=== PATIENT | female | born 1985 | race Caucasian/White ===

== ENCOUNTER 2017-05-28 10:43 | Emergency (ER) | payer OTHER, SELFPAY ==
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
[2017-05-28] MEDS ORDERED: KETOROLAC 30 MG/ML INJ ONE (11:37)
[2017-05-28] MEDS ORDERED: TETANUS & DIPHTHERIA TOX,ADULT 0.5 ML VIAL ONE (11:37)
[2017-05-28] MEDS ORDERED: AMOX/K CLAV 875 MG TAB ONE (11:37)
[2017-05-28 14:03] LABS: Urine Blood 1+ (NEG); Urine Glucose NEGATIVE (NEG); Urine Protein NEGATIVE (NEG)
== END 2017-05-28 11:34 | disposition home or self-care (01) ==
LOC: ER 10:43
DX: L08.9 Local infection of the skin and subcutaneous tissue, unspecified (principal); Y04.1XXA Assault by human bite, initial encounter; Y93.9 Activity, unspecified; Y92.009 Unspecified place in unspecified non-institutional (private) residence as the place of occurrence of the external cause; Z23 Encounter for immunization; F17.210 Nicotine dependence, cigarettes, uncomplicated
CPT/HCPCS: 81003; 81025; 90714; 96372; 99284

== ENCOUNTER 2017-07-17 09:12 | Emergency (ER) | payer SELFPAY ==
[2017-07-17] MEDS ORDERED: hydrOXYzine HCl 25 MG TAB ONE (10:01)
[2017-07-17] MEDS ORDERED: METHYLPREDNISOLONE 125 MG INJ ONE (10:01)
[2017-07-17] MEDS ORDERED: FAMOTIDINE 20 MG/2 ML VIAL IV ONE (10:01)
[2017-07-17 10:28] LABS: Absolute Lymphocytes (CBC) 2.4 K/uL (0.7-4.9); Absolute Monocytes 0.5 K/uL (0.1-1.3); Absolute Neutrophil 5.6 K/uL (1.8-8.0); Basophils % 0.9 % (0-1.3); Bicarbonate 26 mEq/L (21-31); Eosinophils % 1.2 % (0-4.4); Glucose Level 99 mg/dL (65-120); Hematocrit 37.4 % (36.0-45.0); Lymphocytes % 27.3 % (15.3-44.8); MCH 25.7 pg (27.0-35.0); MCV 77.9 fL (80-100); MPV 8.3 fL (7.6-11.3); Potassium 3.5 mEq/L (3.6-5.0); Sodium Level 136 mEq/L (135-145)
[2017-07-17 10:29] LABS: BUN Blood Urea Nitrogen 11 mg/dL (6-20)
--- NOTE | 2017-07-17 11:17 | EDPHYS ---
Physician Documentation [facility] Name: Fe Dao Age: 31 yrs Sex: Female : 1985 Arrival Date: 07/17/2017 Time: 09:15 Bed 18 Private MD: DUSTY OG ED Physician Francisco Ornelas HPI: 07/17 16:54 This 31 yrs old Female presents to ER via Ambulatory with complaints of kdr Allergic Reaction, Back Pain. 16:54 The patient presents with itching, rash, redness of skin. Onset: The symptoms/episode kdr began/occurred gradually, 1.5 week(s) ago. Associated signs and symptoms: The patient has no apparent associated signs or symptoms. Possible causes: The patient has no known obvious cause for the symptoms. At home the patient or guardian has treated the symptoms with Benadryl. Severity of symptoms: At their worst the symptoms were mild moderate just prior to arrival, in the emergency department the symptoms are unchanged. The patient has not experienced similar symptoms in the past. The patient has been recently seen by a physician: Had been on Macrobid for UTI. 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 - Social history:: Smoking status: Patient uses tobacco products, smokes one-half pack cigarettes per day. - Ebola Screening: : No symptoms or risks identified at this time. ROS: 16:54 Constitutional: Negative for fever, chills, and weight loss, Eyes: Negative for injury, kdr pain, redness, and discharge, ENT: Negative for injury, pain, and discharge, Neck: Negative for injury, pain, and swelling, Cardiovascular: Negative for chest pain, palpitations, and edema, Respiratory: Negative for shortness of breath, cough, wheezing, and pleuritic chest pain, Abdomen/GI: Negative for abdominal pain, nausea, vomiting, diarrhea, and constipation, Back: Negative for injury and pain, : Negative for injury, bleeding, discharge, and swelling, MS/Extremity: Negative for injury and deformity, Neuro: Negative for headache, weakness, numbness, tingling, and seizure activity. Psych: Negative for depression, anxiety, suicide ideation, homicidal ideation, and hallucinations, Allergy/Immunology: Negative for hives, rash, and allergies, Endocrine: Negative for neck swelling, polydipsia, polyuria, polyphagia, and marked weight changes, Hematologic/Lymphatic: Negative for swollen nodes, abnormal bleeding, and unusual bruising. 16:54 Skin: Positive for rash. Exam: 16:54 Constitutional: This is a well developed, well nourished patient who is awake, alert, kdr and in no acute distress. Head/Face: Normocephalic, atraumatic. Eyes: Pupils equal round and reactive to light, extra-ocular motions intact. Lids and lashes normal. Conjunctiva and sclera are non-icteric and not injected. Cornea within normal limits. Periorbital areas with no swelling, redness, or edema. Neck: Trachea midline, no thyromegaly or masses palpated, and no cervical lymphadenopathy. Supple, full range of motion without nuchal rigidity, or vertebral point tenderness. No Meningismus. Chest/axilla: Normal chest wall appearance and motion. Nontender with no deformity. No lesions are appreciated. Cardiovascular: Regular rate and rhythm with a normal S1 and S2. No gallops, murmurs, or rubs. Normal PMI, no JVD. No pulse deficits. Respiratory: Lungs have equal breath sounds bilaterally, clear to auscultation and percussion. No rales, rhonchi or wheezes noted. No increased work of breathing, no retractions or nasal flaring. Abdomen/GI: Soft, non-tender, with normal bowel sounds. No distension or tympany. No guarding or rebound. No evidence of tenderness throughout. Back: No spinal tenderness. No costovertebral tenderness. Full range of motion. MS/ Extremity: Pulses equal, no cyanosis. Neurovascular intact. Full, normal range of motion. Neuro: Awake and alert, GCS 15, oriented to person, place, time, and situation. Cranial nerves II-XII grossly intact. Motor strength 5/5 in all extremities. Sensory grossly intact. Cerebellar exam normal. Normal gait. Psych: Awake, alert, with orientation to person, place and time. Behavior, mood, and affect are within normal limits. 16:54 Skin: Appearance: normal except for affected area, rash a mild rash is noted, rash can be described as Vital Signs: 09:25 BP 127 / 79; Pulse 104; Resp 18 S; Temp 98.6(O); Pulse Ox 97% on R/A; Weight 115.67 kg aa5 (R); Height 5 ft. 3 in. (160.02 cm) (R); Pain 9/10; 10:45 BP 126 / 76; Pulse 88; Resp 16; Pulse Ox 100% on R/A; hb 09:25 Body Mass Index 45.17 (115.67 kg, 160.02 cm) aa5 MDM: 11:16 Patient medically screened. kdr 16:58 Data reviewed: vital signs, nurses notes. Counseling: I had a detailed discussion with kdr the patient and/or guardian regarding: the historical points, exam findings, and any diagnostic results supporting the discharge/admit diagnosis, the need for outpatient follow up. 07/17 09:57 Order name: CBC with Diff kdr 07/17 09:57 Order name: Chem 7 kdr Administered Medications: 10:12 Drug: SOLU-Medrol 125 mg Route: IVP; Site: right antecubital; hb 11:00 Follow up: Response: No adverse reaction hb 10:12 Drug: Atarax 50 mg Route: PO; hb 11:00 Follow up: Response: No adverse reaction hb 10:12 Drug: Pepcid 20 mg Route: IVP; Site: right antecubital; hb 11:00 Follow up: Response: No adverse reaction hb Disposition: 07/17/17 11:16 Discharged to Home. Impression: Acute allergic reaction - improved: Unknown source. - Condition is Stable. - Discharge Instructions: Allergies, [id number]. - Prescriptions for Vistaril 50 mg Oral capsule - take 1 capsule by ORAL route 4 times per day As needed; 30 capsule. Pepcid 20 mg Oral Tablet - take 1 tablet by ORAL route every 12 hours for 5 days; 50 tablet. Medrol (Julio) 4 mg Oral Tablets, Dose Pack - take 1 tablet by ORAL route as directed - follow package instructions; 1 packet. - Medication Reconciliation Form, Thank You Letter, Antibiotic Education, Prescription Opioid Use form. - Follow up: DUSTY OG; When: 1 - 2 days; Reason: If symptoms return, Further diagnostic work-up, Recheck today's complaints, Continuance of care, Re-evaluation by your physician. - Problem is new. - Symptoms have improved. - Notes: Watch your glucose level closely while on the medrol dose pack Signatures: Dispatcher [employer] EDFrancisco Yan MD MD kdr Demi Choe, RN RN aa5 Tosin Lisa, RN RN hb Corrections: (The following items were deleted from the chart) 11:35 11:16 07/17/2017 11:16 Discharged to Home. Impression: Acute allergic reaction - hb improved: Unknown source. Condition is Stable. Forms are Medication Reconciliation Form, Thank You Letter, Antibiotic Education, Prescription Opioid Use. Follow up: DUSTY OG; When: 1 - 2 days; Reason: If symptoms return, Further diagnostic work-up, Recheck today's complaints, Continuance of care, Re-evaluation by your physician. Problem is new. Symptoms have improved. kdr
--- NOTE | 2017-07-17 11:17 | ER ---
Nurse's Notes [facility] Name: Fe Dao Age: 31 yrs Sex: Female : 1985 Arrival Date: 07/17/2017 Time: 09:15 Bed 18 Private MD: DUSTY OG Diagnosis: Acute allergic reaction - improved: Unknown source Presentation: 07/17 09:22 Presenting complaint: Patient states: "I've had left back pain for a long time". Pt aa5 reports left flank pain, reports taking PO macrobid for E.Coli in the urine and after failed outpatient therapy she was admitted at [facility] and d/c'd home 07/06/17. Pt also reports rash and itching to whole body that began 07/15/17. Transition of care: patient was not received from another setting of care. Onset of symptoms was June 2017. Risk Assessment: Do you want to hurt yourself or someone else? Patient reports no desire to harm self or others. Initial Sepsis Screen: Does the patient meet any 2 criteria? No. Patient's initial sepsis screen is negative. Does the patient have a suspected source of infection? No. Patient's initial sepsis screen is negative. Care prior to arrival: None. 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 - Social history:: Smoking status: Patient uses tobacco products, smokes one-half pack cigarettes per day. - Ebola Screening: : No symptoms or risks identified at this time. Screenin:40 Abuse screen: Denies threats or abuse. Denies injuries from another. Nutritional hb screening: No deficits noted. Tuberculosis screening: No symptoms or risk factors identified. Fall Risk None identified. Assessment: 09:40 General: Appears in no apparent distress. uncomfortable, Behavior is cooperative, hb anxious. Pain: Denies pain. Neuro: Level of Consciousness is awake, alert, obeys commands, Oriented to person, place, time, situation. Cardiovascular: Capillary refill < 3 seconds Patient's skin is warm and dry. Respiratory: Airway is patent Trachea midline Respiratory effort is even, unlabored, Respiratory pattern is regular, symmetrical, Breath sounds are clear. GI: No signs and/or symptoms were reported involving the gastrointestinal system. : No signs and/or symptoms were reported regarding the genitourinary system. EENT: No signs and/or symptoms were reported regarding the EENT system. Derm: Rash noted that is urticaria, on face, trunk, arms Reports itching. Musculoskeletal: No signs and/or symptoms reported regarding the musculoskeletal system. 10:30 Reassessment: Patient appears in no apparent distress at this time. Patient and/or hb family updated on plan of care and expected duration. Pain level reassessed. Patient is alert, oriented x 3, equal unlabored respirations, skin warm/dry/pink. 11:15 Reassessment: Patient appears in no apparent distress at this time. Patient and/or hb family updated on plan of care and expected duration. Pain level reassessed. Patient is alert, oriented x 3, equal unlabored respirations, skin warm/dry/pink. Patient denies pain at this time. Patient states feeling better. Patient states symptoms have improved. Vital Signs: 09:25 BP 127 / 79; Pulse 104; Resp 18 S; Temp 98.6(O); Pulse Ox 97% on R/A; Weight 115.67 kg aa5 (R); Height 5 ft. 3 in. (160.02 cm) (R); Pain 9/10; 10:45 BP 126 / 76; Pulse 88; Resp 16; Pulse Ox 100% on R/A; hb 09:25 Body Mass Index 45.17 (115.67 kg, 160.02 cm) aa5 ED Course: 09:15 Patient arrived in ED. mr 09:15 DUSTY OG is Private Physician. mr 09:24 Triage completed. aa5 09:24 Arm band placed on. aa5 09:35 Francisco Ornelas MD is Attending Physician. kdr 09:40 Patient has correct armband on for positive identification. Bed in low position. Call hb light in reach. Side rails up X 1. 09:57 Tosin Lisa, RN is Primary Nurse. hb 10:05 Inserted saline lock: 20 gauge 24 gauge antecubital area, using aseptic technique. hb Blood collected. 11:12 DUSTY OG is Referral Physician. kdr 11:34 No provider procedures requiring assistance completed. IV discontinued, intact, hb bleeding controlled, No redness/swelling at site. Pressure dressing applied. Administered Medications: 10:12 Drug: SOLU-Medrol 125 mg Route: IVP; Site: right antecubital; hb 11:00 Follow up: Response: No adverse reaction hb 10:12 Drug: Atarax 50 mg Route: PO; hb 11:00 Follow up: Response: No adverse reaction hb 10:12 Drug: Pepcid 20 mg Route: IVP; Site: right antecubital; hb 11:00 Follow up: Response: No adverse reaction hb Outcome: 11:16 Discharge ordered by . kdr 11:34 Discharged to home ambulatory, with family. hb 11:34 Condition: stable 11:34 Discharge instructions given to patient, Instructed on discharge instructions, follow up and referral plans. medication usage, Demonstrated understanding of instructions, follow-up care, medications, Prescriptions given X 3. 11:35 Patient left the ED. hb Signatures: Francisco Ornelas MD MD kdr Rivera, Maria mr Demi Choe, RN RN aa5 Tosin Lisa, KAREN RN hb
== END 2017-07-17 11:35 | disposition home or self-care (01) ==
LOC: ER 09:12
DX: T78.40XA Allergy, unspecified, initial encounter (principal); X58.XXXA Exposure to other specified factors, initial encounter
CPT/HCPCS: 36415; 80048; 85025; 96374; 96375; 99284; J2930

== ENCOUNTER 2020-03-02 20:03 | Emergency (ER) | payer SELFPAY ==
--- OUTSIDE RECORDS SUMMARY | 2020-03-02 20:05 | XMS REPORT | Continuity of Care Document ---
:1985 Author Organization [facility] t Address [address] [place] [address] Care Team Providers Name Role Phone Ju Cates Attending Clinician Merry-Rmchp Nurse Vst, Nrpt Pills Class Attending Clinician U anna LUU Attending Clinician Visit/Fp, Nurse Attending Clinician Unavailable Doctor Unassigned, Name Attending Clinician Unavailable Lucila Ariza Attending Clinician Pool, Resident Attending Clinician Unavailable Problems This patient has no known problems. Allergies, Adverse Reactions, Alerts This patient has no known allergies or adverse reactions. Medications This patient has no known medications. Procedures This patient has no known procedures. Encounters Start End Encounter Admission Attending Care Care Encounter Source Date/Time Date/Time Type Type Clinicians Facility Department ID 2019-11-17 2019-11-17 Emergency Alvarado [facility] [id number] 15:00:00 18:56:00 Giovanni Whaley [id number] [place] [id number] [place] [id number] 2019-09-22 2019-09-22 Nurse Merry-Rmchp [facility] [id number] 13:14:19 13:53:52 Visit Nurse Vst, STRE[facility] [employer] [id number] [facility] [id number] Pills Class MATERNAL [id number] & CHILD 125 [facility] 2019-09-16 2019-09-16 Telephone JAREK Espinosa [id number] 00:00:00 00:00:[address] [employer] [id number] [facility] [id number] MATERNAL [phone] & CHILD 125 [facility] 2019-07-02 2019-07-02 Nurse Visit/Fp, UNIVERSIT [id number] 09:23:13 10:20:20 Visit [facility] [id number] Nurse CLINICS [id number] 2019-07-02 2019-07-02 Orders Doctor JOSSE [id number] 00:00:00 00:00:00 Only Unassigned, CAROLE [id number] [place] [facility] [id number] [id number] 2019-06-04 2019-06-04 Emergency E MHSE MHSE [id number] MH 02:04:00 [facility]:04[facility] 2019-05-09 2019-05-10 Emergency Valadez, TRAUMA [id number] 22:47:10 00:31:00 Milagro CRYSTAL [id number] 2019-04-01 2019-04-01 Office Pool, [facility] [id number] 13:58:15 15:00:24 Visit [facility] [id number] CLINICS [id number] 2019-02-13 2019-02-13 Emergency E MHBL MHBL [id number] MHBL 22:01:00 22:01:00 2014-11-15 2014-11-15 Patient Doctor JOSSE [id number] 00:00:00 00:00:00 Secure Msg Unassigned, CAROLE [id number] [place] [facility] [id number] Results This patient has no known results.
--- NOTE | 2020-03-02 20:57 | RAD REPORT ---
EXAM DESCRIPTION: Beatriz Cole (2 Views)03/02/2020 8:39 pm CLINICAL HISTORY: Chest pain COMPARISON: 2017 FINDINGS: The lungs appear clear of acute infiltrate. The heart is normal size IMPRESSION: No acute abnormalities displayed
[2020-03-02 22:18] LABS: SARS-COV-2 RT PCR NEGATIVE (NEGATIVE)
[2020-03-02] MEDS ORDERED: NA CHLORIDE 0.9% 1,000 ML ONE (22:49)
[2020-03-02] MEDS ORDERED: METHYLPREDNISOLONE 125 MG INJ ONE (22:51)
[2020-03-02 23:26] LABS: Absolute Lymphocytes (CBC) 4.1 K/uL (0.7-4.9); Lymphocytes % 38.9 % (15.3-44.8); MPV 8.4 fL (7.6-11.3); RBC Red Blood Cell Count 4.61 M/uL (3.86-4.86)
[2020-03-02 23:39] LABS: BUN Blood Urea Nitrogen 11 mg/dL (7-18); Bicarbonate 29 mmol/L (21-32); Glucose Level 98 mg/dL (74-106); Potassium 3.7 mmol/L (3.5-5.1); Sodium Level 140 mmol/L (136-145); Troponin (Emerg Dept Use Only) < 0.02 ng/mL (0.0-0.045)
--- NOTE | 2020-03-02 23:42 | EDPHYS ---
Physician Documentation [facility] Name: Fe Dao Age: 34 yrs Sex: Female : 1985 Arrival Date: 03/02/2020 Time: 20:04 Bed 27 Private MD: ED Physician Jose L Harris HPI: 03/02 22:33 This 34 yrs old Female presents to ER via Ambulatory with complaints of kb Breathing Difficulty, Chest Pain. 22:33 The patient or guardian reports cough, that is intermittent, described as mild, with no kb sputum, difficulty breathing, flu symptoms, arthralgias, low-grade fever, myalgias, no appetite. Onset: The symptoms/episode began/occurred 1 week(s) ago. Severity of symptoms: At their worst the symptoms were moderate, in the emergency department the symptoms are unchanged. Modifying factors: The symptoms are alleviated by nothing, the symptoms are aggravated by nothing. Associated signs and symptoms: Pertinent positives: chest pain, fever, rhinorrhea, Pertinent negatives: diarrhea, ear ache, nausea, sore throat, vomiting. The patient has not experienced similar symptoms in the past. The patient has not recently seen a physician. Historical: - Allergies: 20:12 No Known Allergies; ll1 - PMHx: 20:12 Anxiety; Headaches; Hypertension; muscle spasms; ll1 - PSHx: 20:12 ; ll1 - Immunization history:: Flu vaccine is up to date. - Social history:: Smoking status: Patient reports the use of cigarette tobacco products, smokes one-half pack cigarettes per day. ROS: 22:29 ENT: Negative for injury, pain, and discharge, Neck: Negative for injury, pain, and kb swelling, Abdomen/GI: Negative for abdominal pain, nausea, vomiting, diarrhea, and constipation, Back: Negative for injury and pain, MS/Extremity: Negative for injury and deformity, Skin: Negative for injury, rash, and discoloration, Neuro: Negative for headache, weakness, numbness, tingling, and seizure. 22:29 Constitutional: Positive for body aches, chills, fatigue, fever, malaise. 22:29 Cardiovascular: Positive for chest pain, Negative for edema, orthopnea, palpitations, paroxysmal nocturnal dyspnea. 22:29 Respiratory: Positive for cough, shortness of breath. Exam: 22:32 Constitutional: This is a well developed, well nourished patient who is awake, alert, kb and in no acute distress. Head/Face: Normocephalic, atraumatic. ENT: Nares patent. No nasal discharge, no septal abnormalities noted. Tympanic membranes are normal and external auditory canals are clear. Oropharynx with no redness, swelling, or masses, exudates, or evidence of obstruction, uvula midline. Mucous membranes moist. Cardiovascular: Regular rate and rhythm with a normal S1 and S2. No gallops, murmurs, or rubs. Normal PMI, no JVD. No pulse deficits. Respiratory: Lungs have equal breath sounds bilaterally, clear to auscultation and percussion. No rales, rhonchi or wheezes noted. No increased work of breathing, no retractions or nasal flaring. Abdomen/GI: Soft, non-tender, with normal bowel sounds. No distension or tympany. No guarding or rebound. No evidence of tenderness throughout. Skin: Warm, dry with normal turgor. Normal color with no rashes, no lesions, and no evidence of cellulitis. MS/ Extremity: Pulses equal, no cyanosis. Neurovascular intact. Full, normal range of motion. Neuro: Awake and alert, GCS 15, oriented to person, place, time, and situation. Cranial nerves II-XII grossly intact. Motor strength 5/5 in all extremities. Sensory grossly intact. Cerebellar exam normal. Normal gait. 22:32 Chest/axilla: Inspection: normal, Palpation: tenderness, that is mild, of the anterior kb aspect of left upper chest, that totally reproduces the patient's complaints. Vital Signs: 20:12 BP 123 / 56; Pulse 96; Resp 18; Temp 98.2; Pulse Ox 98% ; Weight 116.12 kg; Height 5 ll1 ft. 2 in. (157.48 cm); Pain 10/10; 22:45 BP 108 / 54; Pulse 86; Resp 18; Pulse Ox 95% on R/A; vg1 23:45 BP 135 / 95; Pulse 88; Resp 16; Pulse Ox 98% on R/A; vg1 20:12 Body Mass Index 46.82 (116.12 kg, 157.48 cm) ll1 MDM: 22:15 Patient medically screened. kb 22:30 Data reviewed: vital signs, nurses notes. Data interpreted: Pulse oximetry: on room air kb is 98 %. Interpretation: normal. Counseling: I had a detailed discussion with the patient and/or guardian regarding: the historical points, exam findings, and any diagnostic results supporting the discharge/admit diagnosis, lab results, radiology results, the need for outpatient follow up, a family practitioner, to return to the emergency department if symptoms worsen or persist or if there are any questions or concerns that arise at home. 03/02 22:19 Order name: COVID-19/FLU A+B; Complete Time: 22:19 EDMS 03/02 22:25 Order name: CBC with Diff; Complete Time: 23:28 kb 03/02 20:05 Order name: Chest Pa And Lat (2 Views) XRAY; Complete Time: 21:02 kb 03/02 20:05 Order name: EKG; Complete Time: 20:06 kb 03/02 20:05 Order name: EKG - Nurse/Tech; Complete Time: 22:18 kb 03/02 22:25 Order name: IV Start; Complete Time: 00:15 kb 03/02 22:25 Order name: Basic Metabolic Panel; Complete Time: 23:41 kb 03/02 22:25 Order name: Troponin (emerg Dept Use Only); Complete Time: 23:41 kb Administered Medications: 23:08 Drug: NS 0.9% 1000 ml Route: IV; Rate: 1000 ml; Site: right antecubital; vg1 03/03 00:09 Follow up: IV Status: Completed infusion; IV Intake: 300ml vg1 03/02 23:08 Drug: SOLU-Medrol 125 mg Route: IVP; Site: right antecubital; vg1 03/03 00:09 Follow up: Response: No adverse reaction vg1 Disposition: 03/02/20 23:42 Discharged to Home. Impression: Acute upper respiratory infection, unspecified. - Condition is Stable. - Discharge Instructions: Viral Respiratory Infection, [id number]. - Prescriptions for Prednisone 20 mg Oral Tablet - take 1 tablet by ORAL route once daily for 5 days; 5 tablet. - Medication Reconciliation Form, Thank You Letter, Antibiotic Education, Prescription Opioid Use, Work release form form. - Follow up: Emergency Department; When: As needed; Reason: Worsening of condition. Follow up: Private Physician; When: 2 - 3 days; Reason: Recheck today's complaints, Continuance of care, Re-evaluation by your physician. Addendum: 03/06/2020 19:04 Co-signature as Attending Physician, Jose L banerjee Signatures: Dispatcher [employer] EDMS Linda Curiel, RESEARCH ENGINEER-C RESEARCH ENGINEER-Ckb Jose L Harris MD MD pkl Garcia, Victoria, RN RN vg1 Karla Mchugh RN RN ll1 Corrections: (The following items were deleted from the chart) 03/02 21:12 20:33 Influenza Screen (A \T\ B)+BA.LAB.BRZ ordered. EDMS EDMS 21:12 20:33 CORONAVIRUS+MR.LAB.BRZ ordered. EDMS EDMS 22:32 22:32 Constitutional: This is a well developed, well nourished patient who is awake, kb alert, and in no acute distress. Head/Face: Normocephalic, atraumatic. ENT: Nares patent. No nasal discharge, no septal abnormalities noted. Tympanic membranes are normal and external auditory canals are clear. Oropharynx with no redness, swelling, or masses, exudates, or evidence of obstruction, uvula midline. Mucous membranes moist. Chest/axilla: Normal chest wall appearance and motion. Nontender with no deformity. No lesions are appreciated. Cardiovascular: Regular rate and rhythm with a normal S1 and S2. No gallops, murmurs, or rubs. Normal PMI, no JVD. No pulse deficits. Respiratory: Lungs have equal breath sounds bilaterally, clear to auscultation and percussion. No rales, rhonchi or wheezes noted. No increased work of breathing, no retractions or nasal flaring. Abdomen/GI: Soft, non-tender, with normal bowel sounds. No distension or tympany. No guarding or rebound. No evidence of tenderness throughout. Skin: Warm, dry with normal turgor. Normal color with no rashes, no lesions, and no evidence of cellulitis. MS/ Extremity: Pulses equal, no cyanosis. Neurovascular intact. Full, normal range of motion. Neuro: Awake and alert, GCS 15, oriented to person, place, time, and situation. Cranial nerves II-XII grossly intact. Motor strength 5/5 in all extremities. Sensory grossly intact. Cerebellar exam normal. Normal gait. kb 03/03 00:11 03/02 23:42 03/02/2020 23:42 Discharged to Home. Impression: Acute upper respiratory vg1 infection, unspecified. Condition is Stable. Forms are Medication Reconciliation Form, Thank You Letter, Antibiotic Education, Prescription Opioid Use. Follow up: Emergency Department; When: As needed; Reason: Worsening of condition. Follow up: Private Physician; When: 2 - 3 days; Reason: Recheck today's complaints, Continuance of care, Re-evaluation by your physician. kb
--- NOTE | 2020-03-02 23:42 | ER ---
Nurse's Notes [facility] Name: Fe Dao Age: 34 yrs Sex: Female : 1985 Arrival Date: 03/02/2020 Time: 20:04 Bed 27 Private MD: Diagnosis: Acute upper respiratory infection, unspecified Presentation: 03/02 20:12 Chief complaint: Patient states: cough, SOB, weak, fatigue for 1 week. Left chest/back ll1 pain for 1 day. No fever. Coronavirus screen: Client denies travel out of the [place] in the last 14 days. congestion, cough unrelated to allergies, difficulty breathing, fatigue, Client presents with at least one sign or symptom that may indicate coronavirus-19. Standard/surgical mask placed on the client. Ebola Screen: Patient denies travel to an Ebola-affected area in the 21 days before illness onset. Initial Sepsis Screen: Does the patient meet any 2 criteria? HR > 90 bpm. No. Patient's initial sepsis screen is negative. Does the patient have a suspected source of infection? Yes: Productive cough/pneumonia. Risk Assessment: Do you want to hurt yourself or someone else? Patient reports no desire to harm self or others. Onset of symptoms was February 25, 2020. 20:12 Method Of Arrival: Ambulatory ll1 20:12 Acuity: SNEHAL 3 ll1 Historical: - Allergies: 20:12 No Known Allergies; ll1 - PMHx: 20:12 Anxiety; Headaches; Hypertension; muscle spasms; ll1 - PSHx: 20:12 ; ll1 - Immunization history:: Flu vaccine is up to date. - Social history:: Smoking status: Patient reports the use of cigarette tobacco products, smokes one-half pack cigarettes per day. Screenin:40 Abuse screen: Denies threats or abuse. Nutritional screening: No deficits noted. vg1 Tuberculosis screening: No symptoms or risk factors identified. Fall Risk None identified. Assessment: 22:40 General: Appears in no apparent distress. comfortable, Behavior is calm, cooperative. vg1 22:40 Pain: Complains of pain in anterior aspect of left upper chest and left mid back. Pain vg1 currently is 10 out of 10 on a pain scale. Neuro: Level of Consciousness is awake, alert, obeys commands, Oriented to person, place, time, situation. Cardiovascular: Patient's skin is warm and dry. Respiratory: Airway is patent Respiratory effort is even, unlabored, Respiratory pattern is regular, symmetrical, Breath sounds are clear bilaterally. GI: No signs and/or symptoms were reported involving the gastrointestinal system. : No signs and/or symptoms were reported regarding the genitourinary system. EENT: No signs and/or symptoms were reported regarding the EENT system. Derm: Skin is intact, is healthy with good turgor. Musculoskeletal: Circulation, motion, and sensation intact. 23:55 Reassessment: Patient appears in no apparent distress at this time. No changes from vg1 previously documented assessment. Vital Signs: 20:12 BP 123 / 56; Pulse 96; Resp 18; Temp 98.2; Pulse Ox 98% ; Weight 116.12 kg; Height 5 ll1 ft. 2 in. (157.48 cm); Pain 10/10; 22:45 BP 108 / 54; Pulse 86; Resp 18; Pulse Ox 95% on R/A; vg1 23:45 BP 135 / 95; Pulse 88; Resp 16; Pulse Ox 98% on R/A; vg1 20:12 Body Mass Index 46.82 (116.12 kg, 157.48 cm) ll1 ED Course: 20:04 Patient arrived in ED. cl3 20:05 Linda Curiel [facility]-C [facility]. kb 20:05 Jose L Harris MD is Attending Physician. kb 20:11 Arm band placed on. ll1 20:14 Triage completed. ll1 20:38 Chest Pa And Lat (2 Views) XRAY In Process Unspecified. EDMS 22:18 Paulette Velasquez, RN is Primary Nurse. vg1 22:40 Patient has correct armband on for positive identification. Bed in low position. Call vg1 light in reach. 03/03 00:00 No provider procedures requiring assistance completed. IV discontinued, intact, vg1 bleeding controlled, No redness/swelling at site. Pressure dressing applied. Administered Medications: 03/02 23:08 Drug: NS 0.9% 1000 ml Route: IV; Rate: 1000 ml; Site: right antecubital; vg1 03/03 00:09 Follow up: IV Status: Completed infusion; IV Intake: 300ml vg1 03/02 23:08 Drug: SOLU-Medrol 125 mg Route: IVP; Site: right antecubital; vg1 03/03 00:09 Follow up: Response: No adverse reaction vg1 Intake: 00:09 IV: 300ml; Total: 300ml. vg1 Outcome: 03/02 23:42 Discharge ordered by MD. wang 03/03 00:00 Discharged to home ambulatory. vg1 Condition: stable Discharge instructions given to patient, Instructed on discharge instructions, follow up and referral plans. medication usage, Demonstrated understanding of instructions, follow-up care, medications, Prescriptions given X 1. 00:11 Patient left the ED. vg1 Signatures: Dispatcher [employer] EDWA Lnida Curiel, LIOR GRANDE-Cora Espinoza cl3 Paulette Velasquez RN RN vg1 Karla Mchugh RN RN ll1
[2020-03-03 01:16] VITALS: TEMP 98.2
[2020-03-03 01:17] VITALS: BP 135/95; O2SAT 98
[2020-03-03] MEDS ORDERED: ONDANSETRON 4 MG/2 ML VIAL ONE (12:06)
--- NOTE | 2020-03-03 22:33 | EKG ---
Test Date: 2020-03-02 Test Time: 20:46:24 Die Drawing Checker: IRAIS MEASUREMENT RESULTS: Intervals: Rate: 85 MD: 152 QRSD: 90 QT: 364 QTc: 433 Lotus: P: 49 MD: 152 QRS: 51 T: 38 INTERPRETIVE STATEMENTS: Normal sinus rhythm Normal ECG No previous ECG available for comparison Electronically Signed On 03-03-20 22:29:41 [employer] MANAGEMENT ADVISER by Zeus Fuentes
== END 2020-03-03 00:11 | disposition home or self-care (01) ==
LOC: ER 20:03
DX: J06.9 Acute upper respiratory infection, unspecified (principal); F17.210 Nicotine dependence, cigarettes, uncomplicated; Z20.822 Contact with and (suspected) exposure to COVID-19
CPT/HCPCS: 0240U; 36415; 71046; 80048; 84484; 85025; 93005; 96361; 96374; 99283; J2405; J2930; J7030

== ENCOUNTER 2020-10-26 09:34 | Emergency (ER) | payer SELFPAY ==
--- OUTSIDE RECORDS SUMMARY | 2020-10-26 09:38 | XMS REPORT | Continuity of Care Document ---
:1985 Author Organization [facility] t Address [address] [place] [address] Care Team Providers Name Role Phone Asked, Pcp Primary Care Physician Unavailable Baron LANDERS, Go Attending Clinician Evonne LANDERS Attending Clinician MD EVONNE Attending Clinician Unavailable Elvia LANDERS Attending Clinician Aiden LANDERS, L Attending Clinician Chino LANDERS Attending Clinician Rick Lainez DO Attending Clinician Alvarado GRANDE, B Attending Clinician [facility] Nurse Vst, Nrpt Pills Class Attending Clinician U anna LUU Attending Clinician Visit/Fp, Nurse Attending Clinician Unavailable Doctor Unassigned, Name Attending Clinician Unavailable Lucila Ariza Attending Clinician Mehdi, Attending Clinician Unavailable EVONNE Admitting Clinician Unavailable MD EVONNE Admitting Clinician Unavailable Payers Payer Name Policy Type Policy Number Effective Date Expiration Date S ource Problems Condition Condition Condition Status Onset Resolution Last Treating Co mments Source Name Details Category Date Date Treatment Clinician Date Pain of Pain of Disease Active [facility] upper upper 5-20 st abdomen abdomen 00:00: Hospita 00 l Allergies, Adverse Reactions, Alerts Allergy Allergy Status Severity Reaction(s) Onset Inactive Treating Comm ents Source Name Type Date Date Clinician Hydrocod Propensi Active Itching Metho di one-Acet ty to 3-25 st aminophe adverse 00:00: Hospita n reaction 00 l s to drug hydrocod DA Active [place] [facility] one 3-24 Clear 00:00: Lozano 00 [facility] acetamin DA Active [facility] ophen 3-24 Clear 00:00: Lozano 00 [facility] Social History Social Habit Start Date Stop Date Quantity Comments Source Sex Assigned At [birth year] [facility] 00:00:00 00:00:00 Smoking Status Start Date Stop Date Source Unknown if ever smoked [facility] Medications Ordered Filled Start Stop Current Ordering Indication Dosage Frequency Signature Comments Components Source Medication Medication Date Date Medication? Clinician (SIG) Name Name famotidine No 20mg Q.5D Take 20 mg [facility] (PEPCID) 20 5-21 05-21 by mouth 2 s t MG tablet 23:53: 00:00 (two) Hospit a 21 :00 times a l day. lisinopriL- Yes 1{tbl} Take 1 [facility] hydrochloro 5-[address] thiazide 23:53: mouth. Hospita (PRINZIDE) 18 l 20-12.5 mg per tablet levothyroxi Yes Take by Met [facility] ne sodium 5-[address] (TIROSINT) 23:53: Hospita 50 mcg 18 l capsule ALPRAZolam Yes 1mg Q.5D Take 1 mg Me [facility] (XANAX) 1 5-[address] MG tablet 23:53: (two) Hospita 18 times a l day as needed for anxiety. traZODone Yes 100mg QD Take 100 Met [facility] (DESYREL) 5-[address] 100 MG 23:53: mouth Hospita tablet 18 nightly as l needed for sleep. DULoxetine 2021-0 Yes 30mg QD Take 30 mg M [facility] (CYMBALTA) 5-[address] 30 MG 23:53: daily. Hospita capsule 18 l montelukast Yes 10mg QD Take 10 mg [facility] (SINGULAIR) 5-[address] 10 mg 23:53: nightly. Hospita tablet 18 l albuterol Yes 2{puff} Q6H Inhale 2 M ethodi (PROAIR 5-[address] HFA) 90 23:53: every 6 Hospita mcg/actuati 18 (six) l on inhaler hours as needed for wheezing. budesonide- Yes 2{puff} Q.5D Inhale 2 [facility] formoteroL 5-[address] (SYMBICORT) 23:53: (two) Hospi ta 160-4.5 18 times a l mcg/actuati day. on inhaler pantoprazol 2020- No 40mg QD Take 1 Met [facility]odi e 5-21 -21 tablet (40 st (Protonix) 00:00: 04:59 mg total) H ospita 40 MG EC 00 :00 by mouth l tablet daily for 30 days. dicyclomine 2020- No 10mg Q.25D Take 1 Me [facility] (BENTYL) 10 -21 05-[address] MG capsule 00:00: 04:59 (10 mg Hosp vania 00 :00 total) by l mouth 4 (four) times a day before meals and nightly for 5 days. sucralfate 2020- No 1g Q.25D Take 1 Met hodi (CARAFATE) 5-16 06-14 tablet (1 st 1 gram 00:00: 04:59 g total) Hospit a tablet 00 :00 by mouth 4 l (four) times a day for 28 days. acetaminoph 2020- [place] [id number] 1{tbl} Q6H Take 1 [facility] en-codeine 3-25 03-[address] (TYLENOL 00:00: 04:59 mouth Hospita WITH 00 :00 every 6 l CODEINE #3) (six) 300-30 mg hours as per tablet needed for moderate pain for up to 4 days .acute pain. azithromyci No 250mg QD Take 1 Me thodi n 05-[address] (Zithromax 00:00: 00:00 (250 mg Hos polo Z-Julio) 250 00 :00 total) by l MG tablet mouth daily. Take 2 tablets the first day, then 1 tablet daily for 4 days. dicyclomine No 10mg Take 10 mg [facility] (BENTYL) 10 11-[address] MG capsule 00:00: 00:00 Hospit a 00 :00 l sucralfate No 1g Take 1 g Me [facility] (CARAFATE) 11-[address] 1 gram 00:00: 00:00 Hospita tablet 00 :00 l ondansetron Yes 4mg Take 4 mg M [facility] ODT 05-[address] (ZOFRAN-ODT 00:00: Hospit a ) 4 MG 00 l disintegrat ing tablet naproxen No 550mg Take 550 Met [facility]odi sodium 05-12- mg by st (ANAPROX) 00:00: 00:00 mouth. Hospi ta 550 MG 00 :00 l tablet gabapentin Yes 600mg Q.[id number] Take 600 [facility] (NEURONTIN) - [id number] mg by s t 300 mg 00:00: 3D mouth 3 Hospita capsule 00 (three) l times a day. Vital Signs Vital Name Observation Time Observation Value Comments Source Systolic blood 2020-07-14 20:36:54 110 mm[Hg] [facility] pressure Diastolic blood 2020-07-14 20:36:54 55 mm[Hg] [facility] pressure Heart rate 2020-07-14 20:36:54 76 /min [facility] Body temperature 2020-07-14 20:36:54 36.11 Rosaline [facility] Respiratory rate 2020-07-14 20:36:54 20 /min [facility] Oxygen saturation in 2020-07-14 20:36:54 98 /min [facility] Arterial blood by Pulse oximetry Body height 2020-07-14 01:37:00 157.5 cm [facility] Body weight 2020-07-14 01:37:00 129.729 kg [facility] BMI 2020-07-14 01:37:00 52.31 kg/m2 [facility] Procedures Procedure Date / Time Performing Clinician Source Performed CT ABDOMEN PELVIS W 2020-07-14 09:36:15 Leilani Draper [facility] CONTRAST Go HC COMPLETE BLD COUNT 2020-07-14 09:08:00 [facility] W/AUTO DIFF Samina COMPREHENSIVE METABOLIC 2020-07-14 09:08:00 [facility] PANEL Samina ESTIMATED GFR 2020-07-14 09:08:00 [facility] Samina BLOOD CULTURE, AEROBIC & 2020-07-14 05:12:00 [facility] ANAEROBIC Samina COVID-19 QUALITATIVE 2020-07-14 05:12:00 [facility] RT-PCR BLOOD CULTURE, AEROBIC & 2020-07-14 05:00:00 [facility] ANAEROBIC Samina LIPASE LEVEL 2020-07-14 02:50:00 [facility] URINALYSIS SCREEN AND 2020-07-14 02:50:00 [facility] MICROSCOPY, WITH REFLEX TO CULTURE HCG QUALITATIVE, URINE 2020-07-14 02:50:00 [facility] SCREEN URINE DRUGS OF ABUSE 2020-07-14 02:50:00 [facility] SCREEN ESTIMATED GFR 2020-07-14 02:50:00 Markie [facility] MANUAL DIFFERENTIAL 2020-07-14 02:50:00 Markie [facility] URINE CULTURE 2020-07-14 02:50[facility] WITH PLATELET AND 2020-07-14 02:50:00 [facility] DIFFERENTIAL COMPREHENSIVE METABOLIC 2020-07-14 02:50:00 Markie [facility] PANEL ALCOHOL LEVEL, BLOOD 2020-07-14 02:04:00 Kacy Call [facility] Samina URINE CULTURE 2020-07-09 08:53:00 Ronny Gan spital URINALYSIS SCREEN AND 2020-07-09 08:53:00 [facility] MICROSCOPY, WITH REFLEX TO CULTURE HCG QUALITATIVE, URINE 2020-07-09 08:53[facility] 2020-07-09 08:37:50 Elvia [facility] INTERPRETATION HC COMPLETE BLD COUNT 2020-07-09 07:35:00 [facility] W/AUTO DIFF COMPREHENSIVE METABOLIC 2020-07-09 07:35:00 [facility] PANEL TROPONIN 2020-07-09 07:35:00 Ronny Gan spital LIPASE LEVEL 2020-07-09 07:35:00 Ronny Gan spital ESTIMATED GFR 2020-07-09 07:35:00 Ronny Gan spital ECG 12-LEAD 2020-07-09 07:30:36 [facility] PELVIC TRANSVAGINAL 2020-05-19 02:26:17 Markie [facility] US PELVIC TRANSABDOMINAL 2020-05-19 02:26:02 Markie Adrian [facility] CT ABDOMEN PELVIS WO 2020-05-19 02:17:55 Saúl Wolfe [facility] CONTRAST RESPIRATORY PATHOGEN 2020-05-18 23:39:00 Adrian Aden [facility] PANEL WITH COVID-19 RT-PCR HCG QUALITATIVE, URINE 2020-05-18 23:39:00 Saúl Wolfe [facility] SCREEN URINE CULTURE 2020-05-18 23:36:00 Adrian Aden [facility] HC COMPLETE BLD COUNT 2020-05-18 23:36:00 Aden [facility] W/AUTO DIFF COMPREHENSIVE METABOLIC 2020-05-18 23:36:00 Markie Adrian Lero [facility] PANEL URINALYSIS SCREEN AND 2020-05-18 23:36:00 Weston [facility] MICROSCOPY, WITH REFLEX TO CULTURE URINE DRUGS OF ABUSE 2020-05-18 23:36:00 Weston Adrianeugenia Martini [facility] SCREEN ESTIMATED GFR 2020-05-18 23:36:00 Aden, Adrian [facility] CT ABDOMEN PELVIS W 2020-05-16 08:[facility] GALL[facility]ADDER 2020-05-16 07:59:33 [facility] COM[facility]HENSIVE METABOL[facility] 2020-05-16 05:55[facility] CREATINE KINASE, TOTAL 2020-05-16 05:55:00 [facility] ESTIMATED GFR 2020-05-16 05:55:00 Chino [facility] NATRIURETIC PEPTIDE 2020-05-16 05:55[facility] WITH PLATELET AND 2020-05-16 05:55:00 [facility] DIFFERENTIAL MANUAL DIFFERENTIAL 2020-05-16 05:55:00 [facility] 2020-05-16 05:38:50 [facility] CHEST 2 VW 2020-05-16 05:37:36 [facility] URINE CULTURE 2020-05-16 05:10:00 Jim Frostory [facility] spital URINALYSIS SCREEN AND 2020-05-16 05:10[facility] WITH REFLEX TO CULTURE HCG QUALITATIVE, URINE 2020-05-16 [facility]AD 2020-05-16 04:29:31 Jim Frostory [facility] spital Plan of Care Planned Activity Planned Date Details Comments Source Future Scheduled Test COVID-19 VACCINE (1) [facility] [code = COVID-19 VACCINE (1)] Future Scheduled Test Hepatitis C screening [facility] (procedure) [code = 938914462] Future Scheduled Test Screening for [facility] malignant neoplasm of cervix (procedure) [code = 595864447] Future Scheduled Test INFLUENZA VACCINE [facility] [code = INFLUENZA VACCINE] Encounters Start End Encounter Admission Attending Care Care Encounter Source Date/Time Date/Time Type Type Clinicians Facility Department ID 2020-07-13 2020-07-14 Emergency Leilani Draper 1.2.840. 1 [id number] [facility] 20:39:00 18:52:[address] 3.430.2.7 Hospit a .3.889239 l .8 2020-07-13 2020-07-14 Outpatient [place]ONNE [place] [id number] [place] 00:00:00 00:00:[address] K[address] 2020-07-09 2020-07-09 Emergency Ronny Gan 1.2.840.1 [id number] [facility] 02:23:00 04:36:[address] 3.430.2.7 Hospit a .3.820803 l .8 2020-07-09 2020-07-09 Emergency RONNY GAN [place] [id number] [place] 00:00:00 00:00:[address] 2020-05-18 2020-05-18 Emergency Marvin, 1.2.840.1 [id number] [facility] 18:29:00 22:20:00 Saúl Yolanda [address]250.1.[address] 3.430.2.7 Hospit a .3.485496 l .8 2020-05-18 2020-05-18 Travel 1.2.840.1 1.2.560.517 [id number] [facility] 00:00:00 00:00:[address] 3.430.2.7 0.2.7.3.698 Ho spita .3.561273 084.8 l .8 2020-05-18 2020-05-18 Emergency AIDEN [facility] [id number] [place] 00:00:00 00:00:00 SAÚL [address] 2020-05-15 2020-05-16 Emergency Chino, 1.2.840.1 [id number] [facility] 23:20:00 04:27:[address] 3.430.2.7 Hospit a .3.883043 l .8 2020-05-16 2020-05-[address] [facility] 1.2.840.114 [id number] 00:00:00 00:00:00 Outreach [facility] 350.1.13.10 [facility] 4.2.7.2.686 [place] [id number] 2020-05-16 2020-05-16 Travel 1.2.840.1 1.2.747.104 [id number] [facility] 00:00:00 00:00:[address] 3.430.2.7 0.2.7.3.698 Ho spita .3.067870 084.8 l .8 2020-05-15 2020-05-16 Emergency CHINO, [facility] [id number] [place] 00:00:00 00:00:00 JEREMY [address] 2019-11-17 2019-11-[address] [facility] 1.2.840.114 [id number] 15:00:00 18:56:00 Giovanni Whaley 350.1.13.10 Alejandra 4.2.7.2.686 [place] [id number] 2019-09-22 2019-09-22 Nurse Merry-Gosia [facility] 1.2.475.472 [id number] 13:14:19 13:53:52 Visit Nurse Iam, OPTICAL MECH[employer]IC 350.1.13.[address] [facility] 4.2.7.2.686 Pills Class MATERNAL [id number] & CHILD [address] [place] [address] 2019-09-16 2019-09-16 Tele[address] Jesús [facility] 1.2.888.719 [id number] 00:00:00 00:00:00 Donna [employer]ICAL MECH[employer]IC 350.1.13.10 REGIONAL 4.2.7.2.686 MATERNAL [id number] & CHILD 125 [facility] 2019-07-02 2019-07-02 Nurse Visit/Fp, UNIVERSIT 1.2.840.114 [id number] 09:23:13 10:20:20 Visit [facility] 350.1.13.10 Nurse CLINICS 4.2.7.2.686 [id number] 2019-07-02 2019-07-02 Orders Doctor JOSSE 1.2.840.114 [id number] 00:00:00 00:00:00 Only Unassigned, CAROLE 350.1.13.10 [facility] 4.2.7.2.686 [id number] 2019-06-04 2019-06-04 Emergency E MHSE MHSE [id number] MH 02:04:00 02:04:00 [facility] 2019-05-09 2019-05-10 Emergency Valadez, TRAUMA 1.2.021.310 [id number] 22:47:10 00:31:00 Milagro [facility] 350.1.13.10 4.2.7.2.686 [id number] 2019-04-01 2019-04-01 Office Pool, [facility] UNIVERSIT 1.2.840.114 [id number] 13:58:15 15:00:24 Visit [facility] 350.1.13.10 CLINICS 4.2.7.2.686 [id number] 2019-02-13 2019-02-13 Emergency E MHBL MHBL [id number] MHBL 22:01:00 22:01:00 2014-11-15 2014-11-15 Patient Doctor JOSSE 1.2.840.114 [id number] 00:00:00 00:00:00 Secure Msg Unassigned, CAROLE 350.1.13.10 [facility] 4.2.7.2.686 [id number] Results Test Description Test Time Test Comments Results Result [facility] e Comments CT Abdomen 2020-06-25 EXAMINATION: CT Method[facility] t Pelvis W 1 ABDOMEN PELVIS W Hospital Contrast 09:49:33 CONTRAST CLINICAL HISTORY: Nausea vomiting COMPARISON: CT abdomen pelvis dated May 18, [address] abdomen pelvis dated May 16, 2020 TECHNIQUE: CT of the abdomen and pelvis with intravenous contrast. CT imaging was performed with iterative reconstruction techniques and/or automated exposure control to reduce radiation dose. FINDINGS: LOWER THORAX: Normal. HEPATOBILIARY: No focal hepatic lesions. No biliary ductal dilation. The gallbladder is normal. SPLEEN: No splenomegaly. PANCREAS: No focal masses or ductal dilation. ADRENALS: No adrenal nodules. KIDNEYS: An 8 mm hypodensity is seen in the superior pole of the right kidney (series 2, image 54) which is stable from prior study and is too small to fully characterize, but statistically likely represents a cyst. No nephrolithiasis or hydronephrosis bilaterally. GI TRACT: Visualized portions of the bowel demonstrate no distention or wall thickening. The appendix is normal. PERITONEUM/RETROPERIT ONEUM: No free air or fluid. No lymphadenopathy. PELVIC ORGANS/BLADDER: The urinary bladder appears normal. The uterus and adnexa are grossly unremarkable. VASCULATURE: Abdominal aorta is nonaneurysmal. BONES AND SOFT TISSUES: Chronic right posterior eighth and ninth rib fractures. IMPRESSION: No acute abnormality in the abdomen or pelvis. [facility]-[id number] Dictated and approved by co founder and president/fellow: David Mariee M.D. I, Sergio Miranda M.D., personally reviewed the images and resident's/fellow's findings and agree with the final report.[facility], Radiology Results Incoming - 07/14/2020 4:52 AM CDT EXAMINATION: CT ABDOMEN PELVIS W CONTRASTCLINICAL HISTORY: Nausea vomitingCOMPARISON: CT abdomen pelvis dated May 18, [address] abdomen pelvis dated May 16, 2020TECHNIQUE: CT of the abdomen and pelvis with intravenous contrast. CT imaging was performed with iterative reconstruction techniques and/or automated exposure control to reduce radiation dose. FINDINGS:LOWER THORAX: Normal.HEPATOBILIARY: No focal hepatic lesions. No biliary ductal dilation. The gallbladder is normal.SPLEEN: No splenomegaly.PANCREAS : No focal masses or ductal dilation.ADRENALS: No adrenal nodules.KIDNEYS: An 8 mm hypodensity is seen in the superior pole of the right kidney (series 2, image 54) which is stable from prior study and is too small to fully characterize, but statistically likely represents a cyst. No nephrolithiasis or hydronephrosis bilaterally.GI TRACT: Visualized portions of the bowel demonstrate no distention or wall thickening. The appendix is normal.PERITONEUM/RET ROPERITONEUM: No free air or fluid. No lymphadenopathy.PELVI C ORGANS/BLADDER: The urinary bladder appears normal. The uterus and adnexa are grossly unremarkable.VASCULAT URE: Abdominal aorta is nonaneurysmal.BONES AND SOFT TISSUES: Chronic right posterior eighth and ninth rib fractures.IMPRESSION: No acute abnormality in the abdomen or pelvis.[facility]-[id number] Dictated and approved by co founder and president/fellow: David Mariee M.D.I, Sergio Miranda M.D., personally reviewed the images and resident's/fellow's findings and agree with the final report. SARS-CoV-2 (COVID-19) RNA [Presence] in Respiratory sp ecimen by 2020-07-14 07:29:03 DARRELL with probe detection Test Item Value Reference Range Interpretation Comme nts SARS-CoV-2 (COVID-19) RNA [Presence] in Respiratory Not detected No t-Detected specimen by DARRELL with probe detection (test code = 85859-3) Whether patient is employed in a healthcare setting (test code = 22200-8) Whether the patient has symptoms related to condition of interest (test code = 49638-5) Patient was hospitalized because of this condition (test code = 07314-9) Whether the patient was admitted to intensive care unit (ICU) for condition of interest (test code = 40147-6) Whether patient resides in a congregate care setting (test code = 95914-5) ECG 12 [id number] 00:43:17 Test Item Value Reference Range Interpretation Comments Ventricular rate (test code = 253) Atrial rate (test code = 255) MD interval (test code = 266) QRSD interval (test code = 260) QT interval (test code = 264) QTC interval (test code = 265) P axis 1 (test code = 267) QRS axis 1 (test code = 268) T wave axis (test code = 270) EKG impression (test Normal sinus code = 273) rhythm-Normal ECG-In automated comparison with ECG of 15-MAY-2020 23:29,-No significant change was found- [facility] ED Preliminary Interpretation - Not an [id number] 08:37:50Ronny Gan MD 07/09/2020 4:31 [facility] ED Preliminary Interpretation - Not an OrderPerformed by: Ronny Gan MDAuthorized by: Ronny Gan MD Interpretation: Interpretation: normal Rate: ECG rate: 95 ECG rate assessment: normal Rhythm: Rhythm: sinus rhythm Ectopy: Ectopy: none QRS: QRS axis: Normal QRS intervals: NormalConduction: Conduction: normal ST segments: ST segments: NormalT waves: T waves[facility] [id number] 02:27:51Examination: US PELVIC TRANSABDOMINAL, US PELVIC TRANSVAGINAL Clinical History: left pelvic pain Comparison: None. Findings: Transabdominal and transvaginal pelvic ultrasound was performed. The uterusmeasures 9.2 x 3.9 x 4.2 cm. No fibroid is seen. Endometrial stripe measure 1.5 cm. The right ovary measured 1.9 x 1.3 x 1.3 cm. It is suboptimally evaluated due to overlying bowel gas. The left ovary measures 2.6 x 2.0 x 2.1 cm. It has a few scattered ovarian follicles. There is normal vascular flow seen in both ovaries. No free fluid is seen. IMPRESSION:1. No evidence of torsion.2. No focal abnormality identified in the pelvis on ultrasound. [id number] Interface, Radiology Results Incoming - 05/18/2020 9:30 PM CDT Examination: US PELVIC TRANSABDOMINAL, US PELVIC TRANSVAGINALClinical History: left pelvic painComparison: None.Findings:Transabdominal and transvaginal pelvic ultrasound was performed.The uterus measures 9.2 x 3.9 x 4.2 cm. No fibroid is seen.Endometrial stripe measure 1.5 cm.The right ovary measured 1.9 x 1.3 x 1.3 cm. It is suboptimally evaluated due to overlying bowel gas.The left ovary measures 2.6 x 2.0 x 2.1 cm. It has a few scattered ovarian follicles.There is normal vascular flow seen in both ovaries.No freefluid is seen.IMPRESSION:1. No evidence of torsion.2. No focal abnormality identified in the pelvis on ultrasound.[id number] Pelvic [id number] 02:27:51Examination: US PELVIC TRANSABDOMINAL, US PELVIC TRANSVAGINAL Clinical History: left pelvic pain Comparison: None. Findings: Transabdominal and transvaginal pelvic ultrasound was performed. The uterusmeasures 9.2 x 3.9 x 4.2 cm. No fibroid is seen. Endometrial stripe measure 1.5 cm. The right ovary m easured 1.9 x 1.3 x 1.3 cm. It is suboptimally evaluated due to overlying bowel gas. The left ovary measures 2.6 x 2.0 x 2.1 cm. It has a few scattered ovarian follicles. There is normal vascular flow seen in both ovaries. No free fluid is seen. IMPRESSION:1. No evidence of torsion.2. No focal abnormality identified in the pelvis on ultrasound. [id number] Interface, Radiology Results 05/18/2020 9:30 PM CDT Examination: US PELVIC TRANSABDOMINAL, US PELVIC TRANSVAGINALClinical History: left pelvic painComparison: None.Findings:Transabdominal and transvaginal pelvic ultrasound was performed.The uterus measures 9.2 x 3.9 x 4.2 cm. No fibroid is seen.Endometrial stripe measure 1.5 cm.The right ovary measured 1.9 x 1.3 x 1.3 cm. It is suboptimally evaluated due to overlying bowel gas.The left ovary measures 2.6 x 2.0 x 2.1 cm. It has a few scattered ovarian follicles.There is normal vascular flow seen in both ovaries.No freefluid is seen.IMPRESSION:1. No evidence of torsion.2. No focal abnormality identified in the pelvis on ultrasound.[id number] Pel[facility] Wo [id number] 02:24:43EXAMINATION: CT ABDOMEN PELVIS WO CONTRAST CLINICAL HISTORY:34 years Female Abdominal pain hernia suspected, Abdominal pain acute nonlocalized TECHNIQUE: Multiple axial images of the abdomen and pelvis were obtained without intravenous administration of iodinated contrast. Sagittal and coronal computerized reformatted images were also obtained. The lack of intravenous contrast reduces the sensitivity of detecting solid organ disease. CT imaging was performed with iterative reconstruction techniques and/or automated exposure control to reduce radiation dose. COMPARISON: CT abdomen/pelvis 05/16/2020, pelvic ultrasound 05/18/2020 IMPRESSION: LUNG BASES:A small calcified granuloma seen in the right middle lobe. No cardiomegaly. ABDOMEN:Liver: The liver is normal. No focal mass.Gallbladder/Biliary: Layering hyperdensity within the gallbladder likely represents vicarious excretion of contrast material. No gallbladder wall thickening/edema is noted. No biliary ductal dilation is seen.Spleen: The spleen is not enlarged.Pancreas: The pancreas is unremarkable.Adrenal Glands: The adrenal glands are u nremarkable.Kidneys: The kidneys are unremarkable. No mass, hydronephrosis or calculi.Vascular: The abdominal aorta is nonaneurysmal.Nodes: No enlarged retroperitoneal or mesenteric lymphadenopathy.Bowel: No bowel obstruction or inflammatory changes. The appendix is normal. The previously noted linear hypodense structure within the distal ileum is no longer identified.Peritoneum/retroperitoneum: No ascites or fluid collections. PELVIS:The urinary bladder is mostly decompressed and not well evaluated. The uterus and adnexa are grossly unremarkable. MUSCULOSKELETAL: Chronic right posterior eighth and ninth rib fractures are noted. No suspicious osseous lesion is seen. SUMMARY:1.No acute intra-abdominal or pelvic abnormality. 1D2RAD_PS02Hm Interface, Radiology Results Incoming - 05/18/2020 9:27 PM CDT EXAMINATION: CT ABDOMEN PELVIS WO CONTRASTCLINICAL HISTORY:34 years Female Abdominal pain hernia suspected, Abdominal pain acute nonlocalizedTECHNIQUE: Multiple axial images of the abdomen and pelvis were obtained without intravenous administration of iodinated contrast. Sagittal and coronal computerized reformatted images were also obtained. The lack of intravenous contrast reduces the sensitivity of detecting solid organ disease. CT imaging was performed with iterative reconstruction techniques and/or automated exposure controlto reduce radiation dose. COMPARISON: CT abdomen/pelvis 05/16/2020, pelvic ultrasound 05/18/2020IMPRESSION:LUNG BASES:A small calcified granuloma seen in the right middle lobe. No cardiomegaly.ABDOMEN:Liver: The liver is normal. No focal mass.Gallbladder/Biliary: Layering hyperdensity within the gallbladder likely represents vicarious excretion of contrast material. No gallbladder wall thickening/edema is noted. No biliary ductal dilation is seen.Spleen: The spleen is not enlarged.Pancreas: The pancreas is unremarkable.Adrenal Glands: The adrenal glands are unremarkable.Kidneys: The kidneys are unremarkable. No mass, hydronephrosis or calculi.Vascular: The abdominal aorta is nonaneurysmal.Nodes: Noenlarged retroperitoneal or mesenteric lymphadenopathy.Bowel: No bowel obstruction or inflammatory changes. The appendix is normal. The previously noted linear hypodense structure within the distal ileum is no longer identified.Peritoneum/retroperitoneum: No ascites or fluid collections.PELVIS:The urinary bladder is mostly decompressed and not well evaluated. The uterus and adnexa are grossly unremarkable. MUSCULOSKELETAL: Chronic right posterior eighth and ninth rib fractures are noted. No suspicious osseous lesion is seen. SUMMARY:1.No acute intra-abdominal or pelvic abnormality.1D2RAD_PS02[facility]- XR ABDOMEN 1V (KUB)2020-05-17 05:19:00[facility] : 1985 Sex: F FAX: Mychal Pate NP [phone] [place]: St: DEP Name: ANDRE GARCIA [facility] : 1985 Age/S: 34/F [address] [place] [address] Blvd Unit #: [id number] Loc: [place] [address] Phys: Mychal Pate NP Acct: [id number] Dis Date: atus: [facility] ER PHONE #: [phone] Exam Date: FAX #: [phone] Reason: abnormality in ileum noted on op imaging yester EXAMS: CPT CODE: [id number] XR ABDOMEN 1V (KUB) 58031 EXAM: CR, XR ABDOMEN AP 1 V: 05/17/2020, 0310 hours Clinical Indication: Cough. Abdominal pain. Body aches. Shortness of breath. Comparison: CT scan dated 05/17/2020. FINDINGS: The AP supine view of the abdomen shows a non-obstructive bowel gas pattern. Auditory large fecal load in the colon, notably in the rectosigmoid region. There is no abnormal dilatation of bowel loops. There is no pneumatosis or mass effect. There are no radiopaque densities noted. Contrast seen in the renal collecting system, ureters and urinary bladder fromrecent contrast injection. Ill-defined sclerotic lesion in the left iliac bone, close to the sacroiliac joint, probably benign. IMPRESSION: 1. Nonobstructive bowel gas. Moderately large fecal load in the colon. SL: KIRA at 0519 Reported and signed by: Avni Reyes M.D. CC: Mychal Pate NP Technologist: RT Lon(Lucila) Trnscrd Date/Time/By: 05/17/2020 (518): By: [email or web address] Orig Print D/T: S: 05/17/2020 (2888) PAGE 1 Signed ReportURINALYSIS [id number] 04:55:00 Test Item Value Reference Range Interpretation Comments UA COLOR (test code = COLU) YELLOW YEL/STRAW UA APPEARANCE (test code = APPU) CLEAR CLEAR UA GLUCOSE DIPSTICK (test code = NEGATIVE NEGATIVE DGLUU) UA BILIRUBIN DIPSTICK (test code NEGATIVE NEGATIVE = BILU) UA KETONE DIPSTICK (test code = NEGATIVE NEGATIVE KETU) UA SPECIFIC GRAVITY (test code = 1.015 1.005-1.030 N SGU) UA BLOOD DIPSTICK (test code = 2+ NEGATIVE A KENIA) UA PH DIPSTICK (test code = FABIANA) 6.0 5.0-7.0 N UA PROTEIN DIPSTICK (test code = 1+ NEGATIVE A PROU) UA UROBILINIOGEN DIPSTICK (test 0.2 mg/dL 0.2-1.0 code = URO) UA NITRITE DIPSTICK (test code = NEGATIVE NEGATIVE BELL) UA LEUKOCYTE ESTERASE DIPSTICK NEGATIVE NEGATIVE (test code = LEUU) UA RBC (test code = RBCU) 0-1 RBC/HPF 0-3 UA WBC NO REFLEX (test code = 0-3 WBC/HPF 0-3 WBCUCL) UA BACTERIA (test code = BACU) TRACE /HPF NONE SEEN UA SQUAMOUS CELLS (test code = 0-5 /HPF NONE SEEN SQU) URINALYSIS [id number] 04:54:00 Test Item Value Reference Range Interpretation Comments UA COLOR (test code = COLU) YELLOW YEL/STRAW UA APPEARANCE (test code = APPU) CLEAR CLEAR UA GLUCOSE DIPSTICK (test code = NEGATIVE NEGATIVE DGLUU) UA BILIRUBIN DIPSTICK (test code = NEGATIVE NEGATIVE BILU) UA KETONE DIPSTICK (test code = NEGATIVE NEGATIVE KETU) UA SPECIFIC GRAVITY (test code = 1.015 1.005-1.030 N SGU) UA BLOOD DIPSTICK (test code = KENIA) 2+ NEGATIVE A UA PH DIPSTICK (test code = FABIANA) 6.0 5.0-7.0 N UA PROTEIN DIPSTICK (test code = 1+ NEGATIVE A PROU) UA UROBILINIOGEN DIPSTICK (test 0.2 mg/dL 0.2-1.0 code = URO) UA NITRITE DIPSTICK (test code = NEGATIVE NEGATIVE BELL) UA LEUKOCYTE ESTERASE DIPSTICK NEGATIVE NEGATIVE (test code = LEUU) UA RBC (test code = RBCU) RBC/HPF 0-3 - CT ABD PELVIS [id number] 04:10:00 [facility] AGATA WHE[place]LANDName: ANDRE GARCIA : 1985 Sex: F Name: ANDRE GARCIA [facility] [place] : 1985 Age/S: 34 / F [address] [place] [address] Blvd Unit #: [id number] Loc:[place] [address] Phys: Mychal Pate [employer] Acct: [id number] Dis Date: Status: REG ER PHONE #: [phone] Exam Date: 05/17/2020300 FAX #: [phone] Reason: l sided abd pain EXAMS: CPT CODE: [id number] CT ABD PELVIS W/CONT 06639VXAG: CT, CT ABDOMEN AND PELVIS W CONTRAST: 05/17/2020, 0306 hours HISTORY: l sided abdpain COMPARISON: None available. TECHNIQUE: Helical imaging was performed from diaphragm through the symphysis with coronal and sagittal reconstructions. CT imaging was performed with exposure control parameters to reduce radiation dose. All CT scans at this location are performed using dose optimization techniques as appropriate to perform exam including the following: * Automated exposure control * Adjustment of the mA and /or kV according to patient size (this includes techniques or standardized protocols for targeted examswhere dose is matched to indication/reason for exam; extremities or head) * Use of iterative reconstruction technique IV CONTRAST: 100 cc Isoveue. GI CONTRAST: NO CT Radiation Dose: DLP = 1009.81 mGy-cm FINDINGS: LOWER CHEST: The visualizedlung bases are clear. Old nonhealed right posterior 8th and 9th rib fractures. LIVER: Unremarkable. GALLBLADDER: Contracted. INTRAHEPATIC BILE DUCT AND EXTRAHEPATIC BILE DUCT: Unremarkable. PANCREAS: Unremarkable. SPLEEN: Unremarkable. ADRENALS: Unremarkable. KIDNEYS AND URETERS: Unremarkable. STOMACH: Unremarkable. B OWEL: The small bowel loops in the abdomen and pelvis appear unremarkable. The colonic loops in the abdomen and pelvis appear unremarkable. APPENDIX: No evidence for appendicitis. PERITONEUM AND RETROPERITONEUM: No ascites or free air. There is no aortic aneurysmor dissection. LYMPH NODES: Unremarkable. PAGE 1 Signed Report (CONTINUED) Name: ANDRE GARCIA [facility] [place] : 1985 Age/S: 34 / F [address] [place] [address] Unit #: [id number] Loc: [place] [address] Phys: Mychal Pate NP Acct: [id number] Dis Date: Status: REG ER PHONE #: [phone] Exam Date: 05/17/2020 030 FAX #: [phone] Reason: l sided abd pain EXAMS: CPT CODE: [id number] CT ABD PELVIS W/CONT 22409 <Continued> PELVIS: No pelvic mass or adenopathy. Uterus is an teverted and unremarkable. Ovaries are not well seen. BLADDER: Unremarkable. OSSEOUS STRUCTURES: No acute abnormality seen. SOFT TISSUES: Small fat-containing umbilical hernia is seen. IMPRESSION: 1. No acute abdominal or pelvic abnormality. 2. Incidental findings as above. SL: [JSYED-H] at 0410 Reported and signed by: Avni Reyes M.D. CC: Mychal Pate NP Technologist:Irving Duran RT(R)(CT) CTDI: DLP: Trnscb Date/Time: 05/17/2020 (409) [email or web address] Orig Print D/T: S: 05/17/2020 (0413) PAGE 2 S igned ReportCBC W/AUTO [id number] 02:47:00 Test Item Value Reference Range Interpretation Comments WHITE BLOOD CELL 11.1 x10 3/uL 4.5-11.0 H (test code = WBC) RED BLOOD CELL (test 4.71 x10 6/uL 3.54-5.02 N code = RBC) HEMOGLOBIN (test code 11.8 g/dL 11.0-15.0 N = HGB) HEMATOCRIT (test code 39.4 % 33.0-45.0 N = HCT) MEAN CELL VOLUME 83.7 fL 81.0-99.0 N (test code = MCV) MEAN CELL HGB (test 25.1 pg 27.0-33.0 L code = MCH) MEAN CELL HGB 29.9 g/dL 33.0-37.0 L CONCETRATION (test code = MCHC) RED CELL DISTRIBUTION 14.5 % 11.5-14.5 N WIDTH CV (test code = RDW) RED CELL DISTRIBUTION 44.2 fL 37.0-54.0 N WIDTH SD (test code = RDW-SD) PLATELET COUNT (test 344 x10 3/uL 150-400 N code = PLT) MEAN PLATELET VOLUME 9.7 fL 7.0-9.0 H (test code = MPV) NEUTROPHIL % (test 56.4 % 56.0-77.0 N code = NT%) IMMATURE GRANULOCYTE 0.4 % 0.0-2.0 N % (test code = IG%) LYMPHOCYTE % (test 36.0 % 14.0-32.0 H code = LY%) MONOCYTE % (test code 5.4 % 4.8-9.0 N = MO%) EOSINOPHIL % (test 1.3 % 0.3-3.7 N code = EO%) BASOPHIL % (test code 0.5 % 0.0-2.0 N = BA%) NUCLEATED RBC % (test 0.0 % 0-0 N code = NRBC%) NEUTROPHIL # (test 6.28 x10 3/uL 2.0-7.6 N code = NT#) IMMATURE GRANULOCYTE 0.04 x10 3/uL 0.00-0.03 H # (test code = IG#) LYMPHOCYTE # (test 4.00 x10 3/uL 1.0-3.8 H code = LY#) MONOCYTE # (test code 0.60 x10 3/uL 0.1-0.8 N = MO#) EOSINOPHIL # (test 0.14 x10 3/uL 0.0-0.2 N code = EO#) BASOPHIL # (test code 0.05 x10 3/uL 0.0-0.2 N = BA#) NUCLEATED RBC # (test 0.00 x10 3/uL 0.0-0.1 N code = NRBC#) MANUAL DIFF REQUIRED NO SLIDE R ANDRÉSD, (test code = MDIFF) CONSISTE NT WITH AUTO DIFF. COMPREHENSIVE METABOLIC [id number] 02:35:00 Test Item Value Reference Range Interpretation Comments SODIUM (test code = NA) 138 mEq/L 134-147 N POTASSIUM (test code = 3.9 mEq/L 3.4-5.0 N K) CHLORIDE (test code = 105 mEq/L 100-108 N CL) CARBON DIOXIDE (test 26 mEq/l 21-33 N code = CO2) ANION GAP (test code = 11 0-20 N GAP) GLUCOSE (test code = 148 mg/dL 70-110 H GLU) BLOOD UREA NITROGEN 9 mg/dL 7-18 N (test code = BUN) GLOMERULAR FILTRATION 82.1 105-110 L Units of measure = RATE (test code = GFR) ml/mi n/1.73 m2 CREATININE (test code = 0.8 mg/dL 0.6-1.3 N CREAT) TOTAL PROTEIN (test 7.7 g/dL 6.4-8.2 N code = PROT) ALBUMIN (test code = 3.90 g/dL 3.4-5.0 N ALB) CALCIUM (test code = 9.3 mg/dL 8.0-10.5 N CA) BILIRUBIN TOTAL (test 0.40 mg/dL 0.0-1.0 N code = BILT) SGOT/AST (test code = 21 IUnit/L 15-37 N AST) SGPT/ALT (test code = 12 IUnit/L 30-65 L ALT) ALKALINE PHOSPHATASE 92 IUnit/L 20-125 N TOTAL (test code = ALKP) [id number] 02:35:00 Test Item Value Reference Range Interpretation Comments LIPASE (test code = LIP) 51 U/L 13-57 N HCG SERUM [id number] 02:35:00 Test Item Value Reference Range Interpretation Comments HCG SERUM QUAL (test code = SERUM NEGATIVE NEGATIVE HCGQL) COMPREHENSIVE METABOLIC [id number] 02:28:00 Test Item Value Reference Range Interpretation Comments SODIUM (test code = NA) mEq/L 134-147 POTASSIUM (test code = K) mEq/L 3.4-5.0 CHLORIDE (test code = CL) mEq/L 100-108 CARBON DIOXIDE (test code = CO2) mEq/l 21-33 ANION GAP (test code = GAP) 0-20 GLUCOSE (test code = GLU) mg/dL 70-110 BLOOD UREA NITROGEN (test code = mg/dL 7-18 BUN) GLOMERULAR FILTRATION RATE (test 105-110 code = GFR) CREATININE (test code = CREAT) mg/dL 0.6-1.3 TOTAL PROTEIN (test code = PROT) g/dL 6.4-8.2 ALBUMIN (test code = ALB) g/dL 3.4-5.0 CALCIUM (test code = CA) mg/dL 8.0-10.5 BILIRUBIN TOTAL (test code = BILT) mg/dL 0.0-1.0 SGOT/AST (test code = AST) IUnit/L 15-37 SGPT/ALT (test code = ALT) IUnit/L 30-65 ALKALINE PHOSPHATASE TOTAL (test IUnit/L 20-125 code = ALKP) [id number] 02:28:00 Test Item Value Reference Range Interpretation Comments LIPASE (test code = LIP) U/L 13-57 HCG SERUM [id number] 02:28:00 Test Item Value Reference Range Interpretation Comments HCG SERUM QUAL (test code = SERUM NEGATIVE NEGATIVE HCGQL) CBC W/AUTO [id number] 02:25:00 Test Item Value Reference Range Interpretation Comments WHITE BLOOD CELL (test code = 11.1 x10 3/uL 4.5-11.0 H WBC) RED BLOOD CELL (test code = 4.71 x10 6/uL 3.54-5.02 N RBC) HEMOGLOBIN (test code = HGB) 11.8 g/dL 11.0-15.0 N HEMATOCRIT (test code = HCT) 39.4 % 33.0-45.0 N MEAN CELL VOLUME (test code = 83.7 fL 81.0-99.0 N MCV) MEAN CELL HGB (test code = MCH) 25.1 pg 27.0-33.0 L MEAN CELL HGB CONCETRATION 29.9 g/dL 33.0-37.0 L (test code = MCHC) RED CELL DISTRIBUTION WIDTH CV 14.5 % 11.5-14.5 N (test code = RDW) RED CELL DISTRIBUTION WIDTH SD 44.2 fL 37.0-54.0 N (test code = RDW-SD) PLATELET COUNT (test code = 344 x10 3/uL 150-400 N PLT) MEAN PLATELET VOLUME (test code 9.7 fL 7.0-9.0 H = MPV) NEUTROPHIL % (test code = NT%) % 56.0-77.0 LYMPHOCYTE % (test code = LY%) % 14.0-32.0 NEUTROPHIL # (test code = NT#) x10 3/uL 2.0-7.6 LYMPHOCYTE # (test code = LY#) x10 3/uL 1.0-3.8 MANUAL DIFF REQUIRED (test code = MDIFF) CBC W/AUTO [id number] 02:23:00 Test Item Value Reference Range Interpretation Comments WHITE BLOOD CELL (test code = x10 3/uL 4.5-11.0 WBC) RED BLOOD CELL (test code = RBC) x10 6/uL 3.54-5.02 HEMOGLOBIN (test code = HGB) 11.8 g/dL 11.0-15.0 N HEMATOCRIT (test code = HCT) 39.4 % 33.0-45.0 N MEAN CELL VOLUME (test code = fL 81.0-99.0 MCV) MEAN CELL HGB (test code = MCH) pg 27.0-33.0 MEAN CELL HGB CONCETRATION (test g/dL 33.0-37.0 code = MCHC) RED CELL DISTRIBUTION WIDTH CV % 11.5-14.5 (test code = RDW) PLATELET COUNT (test code = PLT) 344 x10 3/uL 150-400 N NEUTROPHIL % (test code = NT%) % 56.0-77.0 LYMPHOCYTE % (test code = LY%) % 14.0-32.0 NEUTROPHIL # (test code = NT#) x10 3/uL 2.0-7.6 LYMPHOCYTE # (test code = LY#) x10 3/uL 1.0-3.8 MANUAL DIFF REQUIRED (test code = MDIFF) US [id number] 08:35:53Examination: US GALLBLADDER Clinical History: ruq abd pain Comparison: None. Findings:Gallbladder ultrasound was performed. There is no evidence of gallstone. No gallbladder wall thickening is seen.The common bile duct measures 0.6 cm.The portal vein is patent. IMPRESSION:1. Unremarkable gallbladder ultrasound. 1D2RAD_PS01Hm Interface, Radiology Results 05/16/2020 3:38 AM CDTFormattingof this note might be different from the original.Examination: US GALLBLADDERClinical History: ruq a bd painComparison: None.Findings:Gallbladder ultrasound was performed.There is no evidence of gallstone. No gallbladder wall thickening is seen.The common bile duct measures 0.6 cm.The portal vein is patent.IMPRESSION:1. Unremarkable gallbladder ultrasound.1D2RAD_PS01[facility] [id number] 05:41:21EXAMINATION: XR CHEST 2 VW CLINICAL HISTORY: 34 years Female cough COMPARISON: None. IMPRESSION: Lines/Tubes: None. Lungs/Pleura: The lungs are clear. No pleural effusion or pneumothorax. Heart/Mediastinum: The cardiomediastinal silhouette is normal. Bones: No acute osseous abnormality. 1D2RAD_PS02 Interface, Radiology Results Incoming - 05/16/2020 12:44 AM CDTFormatting of this note might bedifferent from the original.EXAMINATION: XR CHEST 2 VWCLINICAL HISTORY: 34 years Female coughCOMPARISON: None.IMPRESSION:Lines/Tubes: None.Lungs/Pleura: The lungs are clear. No pleural effusion or pneumothorax.Heart/Mediastinum: The cardiomediastinal silhouette is normal.Bones: No acute osseous abnormality.1D2RAD_PS02[facility]
[2020-10-26 10:03] LABS: Absolute Lymphocytes (CBC) 2.3 K/uL (0.7-4.9); Basophils % 0.6 % (0-1.3); Lymphocytes % 27.3 % (15.3-44.8); MPV 7.8 fL (7.6-11.3); RBC Red Blood Cell Count 4.63 M/uL (3.86-4.86)
[2020-10-26 10:56] LABS: SARS-COV-2 RT PCR NEGATIVE (NEGATIVE)
--- NOTE | 2020-10-26 11:17 | ER ---
Nurse's Notes [facility] Name: Fe Dao Age: 35 yrs Sex: Female : 1985 Arrival Date: 10/26/2020 Time: 09:37 Bed Waiting Private MD: Diagnosis: Acute upper respiratory infection, unspecified;Abnormal uterine and vaginal bleeding, unspecified Presentation: 10/26 09:50 Chief complaint: Patient states: cough, congestion, bodyaches, fatigue, headache for 2 jl7 days. vaginal bleeding for 2 month. Coronavirus screen: Vaccine status: Patient reports receiving the 1st dose of the Covid vaccine. chills, congestion, cough unrelated to allergies, fatigue, muscle pain. Ebola Screen: Patient negative for fever greater than or equal to 101.5 degrees Fahrenheit, and additional compatible Ebola Virus Disease symptoms Patient denies exposure to infectious person. Patient denies travel to an Ebola-affected area in the 21 days before illness onset. No symptoms or risks identified at this time. Initial Sepsis Screen: Does the patient meet any 2 criteria? No. Patient's initial sepsis screen is negative. Does the patient have a suspected source of infection? No. Patient's initial sepsis screen is negative. Risk Assessment: Do you want to hurt yourself or someone else? Patient reports no desire to harm self or others. Onset of symptoms was October 24, 2020. 09:50 Acuity: SNEHAL 4 jl7 09:50 Method Of Arrival: Ambulatory jl7 Triage Assessment: 09:47 General: Appears in no apparent distress. comfortable, Behavior is calm, cooperative. jl7 Pain: Complains of pain in bodyaches Pain currently is 10 out of 10 on a pain scale. Respiratory: Breath sounds are clear. Historical: - Allergies: 09:48 No Known Allergies; jl7 - Home Meds: 09:48 Alprazolam Oral [Active]; lisinopril-hydrochlorothiazide Oral [Active]; Cymbalta 20 mg jl7 oral cpDR [Active]; Singulair 10 mg Oral tab [Active]; omeprazole 20 mg Oral cpDR [Active]; - PMHx: 09:48 Anxiety; Headaches; Hypertension; Gastroesophageal reflux disease; jl7 - PSHx: 09:48 section; Ligation of fallopian tube; jl7 - Immunization history:: Adult Immunizations up to date, Client reports receiving the 1st dose of the Covid vaccine, October 06, 2020. - Social history:: Smoking status: Patient reports the use of cigarette tobacco products, smokes one-half pack cigarettes per day. Screenin:00 Abuse screen: Denies threats or abuse. Denies injuries from another. Nutritional jl7 screening: No deficits noted. Tuberculosis screening: No symptoms or risk factors identified. Fall Risk IV access (20 points). Total Shin Fall Scale indicates No Risk (0-24 pts). Vital Signs: 09:47 BP 116 / 84; Pulse 107; Resp 18; Temp 97.0; Pulse Ox 97% ; Weight 120.2 kg; Height 5 jl7 ft. 3 in. (160.02 cm); Pain 10; 09:47 Body Mass Index 46.94 (120.20 kg, 160.02 cm) jl7 ED Course: 09:37 Patient arrived in ED. mr 09:52 Triage completed. jl7 09:52 Linda Curiel FNP-C is [facility]. kb 09:52 Christian Mares MD is Attending Physician. kb 10:00 Initial lab(s) drawn, by ut, COVID swab sent to lab. Flu and/or RSV swab sent to lab. jl7 Inserted saline lock: 20 gauge in left antecubital area, using aseptic technique. Blood collected. 10:00 Patient has correct armband on for positive identification. Bed in low position. Call jl7 light in reach. Side rails up X 1. 11:22 IV discontinued, intact, bleeding controlled, No redness/swelling at site. Pressure jl7 dressing applied. 11:22 No provider procedures requiring assistance completed. jl7 Administered Medications: No medications were administered Outcome: 11:16 Discharge ordered by . kb 11:23 Patient left the ED. jl7 Signatures: Linda Curiel FNP-C FNP-Melinda Kuldip Barbara Yamilet Jean, RN RN jl7
--- NOTE | 2020-10-26 11:18 | EDPHYS ---
Physician Documentation [facility] Name: Fe Dao Age: 35 yrs Sex: Female : 1985 Arrival Date: 10/26/2020 Time: 09:37 Bed Waiting Private MD: ADALI Physician Christian Mares HPI: 10/26 11:15 This 35 yrs old Female presents to ER via Ambulatory with complaints of kb Congestion, Vaginal Bleeding, Body Aches. 11:15 The patient or guardian reports cough, that is intermittent, described as moderate, flu kb symptoms, low-grade fever, myalgias. Onset: The symptoms/episode began/occurred 2 day(s) ago. Severity of symptoms: At their worst the symptoms were mild, in the emergency department the symptoms are unchanged. Modifying factors: The symptoms are alleviated by nothing, the symptoms are aggravated by nothing. Associated signs and symptoms: The patient has no apparent associated signs or symptoms. The patient has not experienced similar symptoms in the past. The patient has not recently seen a physician. Pt reports cough, congestion, bodyaches, fatigue, headache. "all of the covid symptoms except fever" for 2 days. Also reports vaginal bleeding for 2 months. sTates it has been spotting, but this week she has been passing clots. . Historical: - Allergies: 09:48 No Known Allergies; jl7 - Home Meds: 09:48 Alprazolam Oral [Active]; lisinopril-hydrochlorothiazide Oral [Active]; Cymbalta 20 mg jl7 oral cpDR [Active]; Singulair 10 mg Oral tab [Active]; omeprazole 20 mg Oral cpDR [Active]; - PMHx: 09:48 Anxiety; Headaches; Hypertension; Gastroesophageal reflux disease; jl7 - PSHx: 09:48 section; Ligation of fallopian tube; jl7 - Immunization history:: Adult Immunizations up to date, Client reports receiving the 1st dose of the Covid vaccine, October 06, 2020. - Social history:: Smoking status: Patient reports the use of cigarette tobacco products, smokes one-half pack cigarettes per day. ROS: 11:13 Cardiovascular: Negative for chest pain, palpitations, and edema. kb 11:13 Constitutional: Positive for body aches, chills, fatigue, malaise. 11:13 ENT: Positive for sinus congestion. 11:13 Respiratory: Positive for cough, Negative for dyspnea on exertion, hemoptysis, orthopnea, pleurisy, shortness of breath, sputum production, wheezing. 11:13 : Positive for vaginal bleeding. 11:13 All other systems are negative. kb 11:15 Neuro: Positive for headache. kb Exam: 11:14 Constitutional: This is a well developed, well nourished patient who is awake, alert, kb and in no acute distress. Head/Face: Normocephalic, atraumatic. ENT: Moist Mucous membranes Cardiovascular: Regular rate and rhythm with a normal S1 and S2. No gallops, murmurs, or rubs. No pulse deficits. Respiratory: Respirations even and unlabored. No increased work of breathing, no retractions or nasal flaring. Skin: Warm, dry with normal turgor. Normal color. MS/ Extremity: Pulses equal, no cyanosis. Neurovascular intact. Full, normal range of motion. Neuro: Awake and alert, GCS 15, oriented to person, place, time, and situation. Moves all extremities. Normal gait. Psych: Awake, alert, with orientation to person, place and time. Behavior, mood, and affect are within normal limits. Vital Signs: 09:47 BP 116 / 84; Pulse 107; Resp 18; Temp 97.0; Pulse Ox 97% ; Weight 120.2 kg; Height 5 jl7 ft. 3 in. (160.02 cm); Pain 10/10; 09:47 Body Mass Index 46.94 (120.20 kg, 160.02 cm) jl7 MDM: 09:52 Patient medically screened. kb 11:13 Data reviewed: vital signs, nurses notes. Data interpreted: Pulse oximetry: on room air kb is 97 %. Interpretation: normal. Counseling: I had a detailed discussion with the patient and/or guardian regarding: the historical points, exam findings, and any diagnostic results supporting the discharge/admit diagnosis, lab results, the need for outpatient follow up, a family practitioner, an OB/Gyne specialist, to return to the emergency department if symptoms worsen or persist or if there are any questions or concerns that arise at home. 10/26 09:47 Order name: CBC with Diff [facility] 10/26 09:47 Order name: Flu [facility] 10/26 09:48 Order name: CBC with Automated Diff; Complete Time: 10:07 EDMS 10/26 10:57 Order name: COVID-19/FLU A+B; Complete Time: 10:59 EDMS Administered Medications: No medications were administered Disposition: 10/27 08:24 Co-signature as Attending Physician, Christian Mares MD I agree with the assessment and scooter plan of care. Disposition Summary: 10/26/20 11:16 Discharge Ordered Location: Home kb Condition: Stable kb Diagnosis - Acute upper respiratory infection, unspecified kb - Abnormal uterine and vaginal bleeding, unspecified kb Followup: kb - With: Emergency Department - When: As needed - Reason: Worsening of condition Followup: kb - With: Private Physician - When: 2 - 3 days - Reason: Recheck today's complaints, Continuance of care, Re-evaluation by your physician Discharge Instructions: - Discharge Summary Sheet kb - Upper Respiratory Infection, Adult, [id number] kb - Viral Respiratory Infection, [id number] kb Forms: - Medication Reconciliation Form kb - Thank You Letter kb - Antibiotic Education kb - Prescription Opioid Use kb Signatures: Dispatcher [employer] EDMS Linda Curiel, TECHNOLOGY ADOPTION MANAGER-C TECHNOLOGY ADOPTION MANAGER-Christian Arrington MD MD cha Leal, Jahala, RN RN jl7 Corrections: (The following items were deleted from the chart) 10/26 10:06 09:48 Influenza Screen (A ordered. EDWA EDMS 10:06 09:48 CORONAVIRUS+MR.LAB.BRZ ordered. EDWA EDMS
[2020-10-26 11:31] VITALS: BP 116/84; TEMP 97; O2SAT 97
== END 2020-10-26 11:23 | disposition home or self-care (01) ==
LOC: ER 09:34
DX: J06.9 Acute upper respiratory infection, unspecified (principal); N93.9 Abnormal uterine and vaginal bleeding, unspecified; I10 Essential (primary) hypertension; F41.9 Anxiety disorder, unspecified; F17.210 Nicotine dependence, cigarettes, uncomplicated; Z20.822 Contact with and (suspected) exposure to COVID-19
CPT/HCPCS: 0240U; 36415; 85025; 99283